=== PATIENT | male | born 1995 | race American Indian/Alaskan Native ===

== ENCOUNTER 2020-03-09 21:24 | Emergency (ER) | payer SELFPAY ==
[2020-03-09 21:38] VITALS: BP 128/75
[2020-03-10] MEDS ORDERED: AZITHROMYCIN 250 MG TAB PO ONE (04:39)
[2020-03-10] MEDS ORDERED: LIDOCAINE-MPF (1%) 10 MG/1 ML VIAL 5 ML INFILTRATI ONE (04:39)
[2020-03-10 05:12] LABS: Bilirubin,Urine NEG (Negative); Blood,Urine NEG (Negative); Color,Urine Yellow (Yellow); Mucus,Urine FEW /HPF; Urobilinogen,Urine < 2.0 mg/dL (<2.0)
--- NOTE | 2020-03-10 06:01 | Emergency Department Report ---
ED Male HPI - General Chief complaint: Urogenital-Male Stated complaint: POSS STD Source: patient Mode of arrival: Ambulatory Limitations: No Limitations - History of Present Illness Initial comments: Patient is a 25-year-old -[place] male with no past medical history presents to the ED with complaint of acute onset persistent dysuria, urinary frequency and urgency and penile discharge for the last 4 days. Patient states that he had unprotected sexual intercourse about 1 week ago with a female friend who later called her and asked her to come to the hospital and get evaluated and treated for STD. Patient states that his symptoms have worsened in the last 12 hours. Patient denies testicular pain, hematuria, abdominal pain, nausea, vomiting, chest pain, shortness of breath, sore throat, diarrhea or scrotal swelling and pain. MD Complaint: penile discharge, dysuria -: Sudden, days(s) (4) Location: penis Radiation: none Severity: moderate Severity scale (0 -10): 5 Quality: burning Consistency: constant Improves with: none Worsens with: urination denies other symptoms, discharge, dysuria - Related Data Sexually active: Yes Previous Rx's Medication Instructions Recorded Last Taken Type Doxycycline Hyclate 100 mg PO Q12H #20 tablet. 03/10/20 Unknown Rx Phenazopyridine [Pyridium] 200 mg PO TID #15 tab 03/10/20 Unknown Rx Allergies Allergy/AdvReac Type Severity Reaction Status Date / Time No Known Allergies Allergy Unverified 03/10/20 05:46 ED Review of Systems ROS: Stated complaint: POSS STD Other details as noted in HPI Constitutional: denies: chills, fever Eyes: denies: eye pain, eye discharge, vision change ENT: denies: ear pain, throat pain Respiratory: denies: cough, shortness of breath, wheezing Cardiovascular: denies: chest pain, palpitations Endocrine: no symptoms reported Gastrointestinal: denies: abdominal pain, nausea, diarrhea Genitourinary: urgency, dysuria, frequency, discharge Musculoskeletal: denies: back pain, joint swelling, arthralgia Skin: denies: rash, lesions Neurological: denies: headache, weakness, paresthesias Psychiatric: denies: anxiety, depression Hematological/Lymphatic: denies: easy bleeding, easy bruising ED Past Medical Hx - Past Medical History Previous Medical History?: Yes Hx Asthma: Yes - Surgical History Past Surgical History?: No - Social History Smoking Status: Never Smoker Substance Use Type: Marijuana - Medications Home Medications: Home Medications Medication Instructions Recorded Confirmed Last Taken Type Doxycycline Hyclate 100 mg PO Q12H #20 tablet. 03/10/20 Unknown Rx Phenazopyridine [Pyridium] 200 mg PO TID #15 tab 03/10/20 Unknown Rx ED Physical Exam - General Limitations: No Limitations General appearance: alert, in no apparent distress - Head Head exam: Present: atraumatic, normocephalic, normal inspection - Eye Eye exam: Present: normal appearance, PERRL, EOMI Pupils: Present: normal accommodation - ENT ENT exam: Present: normal exam, normal orophraynx, mucous membranes moist, TM's normal bilaterally, normal external ear exam - Neck Neck exam: Present: normal inspection, full ROM - Respiratory Respiratory exam: Present: normal lung sounds bilaterally. Absent: respiratory distress, wheezes, rales, stridor, chest wall tenderness, decreased breath sounds, prolonged expiratory - Cardiovascular Cardiovascular Exam: Present: regular rate, normal rhythm, normal heart sounds. Absent: systolic murmur, diastolic murmur, rubs, gallop - GI/Abdominal GI/Abdominal exam: Present: soft, normal bowel sounds. Absent: tenderness, guarding, rebound, hyperactive bowel sounds, hypoactive bowel sounds, organomegaly - External exam: Present: other (Genital exam deferred) - Extremities Exam Extremities exam: Present: normal inspection, full ROM, normal capillary refill - Back Exam Back exam: Present: normal inspection, full ROM. Absent: tenderness, CVA tenderness (R), CVA tenderness (L), muscle spasm, paraspinal tenderness, vertebral tenderness - Neurological Exam Neurological exam: Present: alert, oriented X3, CN II-XII intact, normal gait, reflexes normal - Psychiatric Psychiatric exam: Present: normal affect, normal mood - Skin Skin exam: Present: warm, dry, intact, normal color. Absent: rash ED Course Vital Signs 03/09/20 21:35 Temperature 98.5 F Pulse Rate 90 Respiratory 16 Rate Blood Pressure 128/75 O2 Sat by Pulse 98 Oximetry ED Medical Decision Making - Medical Decision Making This is a 25-year-old -[place] male with no past medical history presents to the ED with complaint of acute onset persistent dysuria, urinary frequency and urgency and penile discharge for the last 4 days. Patient states that he had unprotected sexual intercourse about 1 week ago with a female friend who later called her and asked her to come to the hospital and get evaluated and treated for STD. Patient states that his symptoms have worsened in the last 12 hours. In the ED, patient is alert and oriented x3 and is not in any distress. Patient was treated empirically in the ED for gonorrhea and chlamydia with Rocephin 250 mg IM x1, and azithromycin 1 g p.o. x1. Urinalysis showed significant white blood cells in the urine consistent with suspected STD possibly good gonorrhea or chlamydia. Chlamydia and gonorrhea tests are pending at this time. Patient discharged home on medications and was advised to follow-up at the [facility] for further STD testing including HIV and syphilis. Patient was advised to ensure that his sexual partner also gets treated for the same. Patient was otherwise advised return to the ED immediately if symptoms get worse. - Differential Diagnosis STD; UTI; urethritis; gonorrhea; chlamydia Critical care attestation.: If time is entered above; I have spent that time in minutes in the direct care of this critically ill patient, excluding procedure time. ED Disposition Clinical Impression: STD (sexually transmitted disease), Dysuria, Urethritis, Acute urinary tract infection Disposition: DC-01 TO HOME OR SELFCARE Is pt being admited?: No Does the pt Need Aspirin: No Condition: Stable Instructions: Dysuria, Urethritis, Adult, Gonorrhea, Chlamydia, Male, Urinary Tract Infection, Adult, [id number] Additional Instructions: Take medication with food, drink plenty of fluids and follow-up with [facility] for further STD testing including HIV and syphilis. Observe safe sexual practices. Return to the ED immediately if symptoms get worse. Prescriptions: Doxycycline Hyclate 100 mg PO Q12H #20 tablet. Phenazopyridine [Pyridium] 200 mg PO TID #15 tab Referrals: [facility] Depart [Outside] - 3-5 Days Forms: STI Treatment and Prevention Time of Disposition: 06:02 Print Language: KOREAN
== END 2020-03-10 06:30 | disposition home or self-care (01) ==
LOC: ED 21:24
DX: N39.0 Urinary tract infection, site not specified (principal); R30.0 Dysuria; A64 Unspecified sexually transmitted disease; F12.90 Cannabis use, unspecified, uncomplicated; J45.909 Unspecified asthma, uncomplicated; Z79.899 Other long term (current) drug therapy
CPT/HCPCS: 81001; 87086; 87591; 96372; 99283; J0696